=== PATIENT | male | born 1985 | race African-American/Black ===

== ENCOUNTER 2018-12-18 06:33 | Emergency (ER) | payer MEDICAID ==
[~2018-12-18] VITALS: Ht 188 cm; Wt 79.4 kg
--- NOTE | 2018-12-18 06:47 | NUR ---
Patient came in to the ER with chief complaint of pain and swelling on right knee area. Per patient he accidentally bump his right knee into the table x6-7hours a hours ago. Right knee with swelling and minimal redness noted and tender to touch. Patient AAOx4. In no respirator distress. No cardio vascular concern. No /GI concern. Bed on lock position. Fall precaution per protocol.
--- NOTE | 2018-12-18 06:53 | NUR ---
SHANON BELL AT BEDSIDE FOR MSE.
--- NOTE | 2018-12-18 07:10 | NUR ---
Assumed care of patient. No acute distress noted. VSS
--- NOTE | 2018-12-18 07:10 | NUR ---
Report given to day shift LAURA Rangel
--- NOTE | 2018-12-18 07:31 | NUR ---
dPatient discharged to home in stable conditon. Written and verbal after care instructions given. Patient verbalizes understanding of instructions. Ambulated from ER with stable gait. All belongings with patient.
[2018-12-18 07:32] VITALS: BP 124/80
== END 2018-12-18 07:35 | disposition home or self-care (01) ==
LOC: ER 06:33
DX: S80.11XA Contusion of right lower leg, initial encounter (principal); W22.8XXA Striking against or struck by other objects, initial encounter; Y93.89 Activity, other specified; Y92.89 Other specified places as the place of occurrence of the external cause; Y99.8 Other external cause status
CPT/HCPCS: 73590; A4663